=== PATIENT | female | born 1965 | race Caucasian/White ===

== ENCOUNTER 2020-05-31 02:50 | Emergency (ER) | payer OTHER ==
[~2020-05-31] VITALS: Ht 149.9 cm; Wt 40.4 kg
[~2020-05-31 02:50] MED LIST: ASCO1ER PO; Amoxicillin500 MG PO; CIPR500 PO; CODGUAEL PO; DIAZ5 PO; HYDACE5 PO; HYDGUAL120 PO; LEVFLO500 PO; NAPR500 PO; Naprosyn500 MG PO; OXYACE5T PO; TOBR.3OPSO OP
[2020-05-31] MEDS ORDERED: ALBU90OI (03:39)
[2020-05-31] MEDS ORDERED: ALBU2.5V5 (03:39)
[2020-05-31] MEDS ORDERED: Norco 5-325 Ta1 EACH PO (03:49)
[2020-05-31] MEDS ORDERED: IBUP600 PO (03:49)
== END 2020-05-31 04:00 | disposition home or self-care (01) ==
LOC: ER 02:50
DX: S23.29XA Dislocation of other parts of thorax, initial encounter (principal); Z79.899 Other long term (current) drug therapy; F17.200 Nicotine dependence, unspecified, uncomplicated; X50.1XXA Overexertion from prolonged static or awkward postures, initial encounter
CPT/HCPCS: 71101; 93005; 93010; 96374; 99284-25; J1885

== ENCOUNTER 2022-06-03 21:28 | Emergency (ER) | payer OTHER ==
[~2022-06-03] VITALS: Ht 149.9 cm; Wt 39.9 kg
[~2022-06-03 21:28] MED LIST changes: +ALBU2.5V5; +ALBU90OI; +IBUP600 PO; +Norco 5-325 Ta1 EACH PO
[2022-06-03 22:12] LABS: BASOPHILS ABSOLUTE AUTO 0.03 K/mm3 (0.00-0.23); BASOPHILS PERCENT AUTO 0 % (0-2); EOSINOPHILS ABSOLUTE AUTO 0.34 K/mm3 (0.00-0.68); EOSINOPHILS PERCENT AUTO 5 % (0-6); Hemoglobin 12.7 g/dL (11.5-16.0); IMMATURE GRAN ABSOLUTE AUTO 0.01 K/mm3 (0.00-0.10); IMMATURE GRAN PERCENT AUTO 0 % (0-1); LYMPHOCYTES ABSOLUTE AUTO 2.08 K/mm3 (0.84-5.20); LYMPHOCYTES PERCENT AUTO 30 % (21-46); MONOCYTES PERCENT AUTO 7 % (4-13); Mean Corpuscular HGB 30.8 pg (26.0-34.0); Mean Corpuscular HGB Conc 33.4 g/dL (31.5-36.5); Mean Corpuscular Volume 92 fL (80-100); Mean Platelet Volume 9.5 fL (9.1-12.4); NEUTROPHILS ABSOLUTE AUTO 4.03 K/mm3 (1.96-9.15); NEUTROPHILS PERCENT AUTO 58 % (41-73); Platelet Count 242 K/mm3 (150-400); RDW Coefficient Variation 12.2 % (11.7-14.2); RDW Standard Deviation 41.7 fL (35.1-46.3); Red Blood Cell Count 4.13 M/mm3 (3.80-5.20); White Blood Cell Count 6.99 K/mm3 (4.00-11.30)
[2022-06-03 22:29] LABS: Albumin, Blood 3.6 g/dL (3.4-5.0); Bilirubin, Total 0.4 mg/dL (0.1-1.0); Bun/Creatinine Ratio 20.2 (12.0-20.0); Calcium, Blood 9.5 mg/dL (8.5-10.1); Creatinine, Blood 0.74 mg/dL (0.40-1.00); Globulin, Blood 3.6 g/dL (2.2-4.0); Total Protein, Blood 7.2 g/dL (6.4-8.2)
[2022-06-04 00:13] LABS: Source, Urine Clean Catch
[2022-06-04 00:18] LABS: Bilirubin, Urine Neg (Neg); Blood, Urine 1+ (Neg); Glucose Qualitative, Urine Neg (Neg); Ketones, Urine Neg (Neg); Leukocyte Esterase, Urine 1+ (Neg); Nitrite, Urine Neg (Neg); Protein, Urine Neg (Neg); Urobilinogen, Urine NORM (Normal)
[2022-06-04 00:23] LABS: Appearance, Urine Hazy (Clear); Color, Urine Yellow (P-Yellow)
[2022-06-04 00:25] LABS: Bacteria Mod /hpf; Red Blood Cells, Urine 0-2 /hpf (0-2); Squamous Epithelial Cells Mod /hpf (Few)
[2022-06-04 00:26] LABS: Amorphous Heavy (0-Heavy)
[2022-06-04] MEDS ORDERED: ONDA4ODT MM (01:50)
[2022-06-04] MEDS ORDERED: AMOCLA875 PO (01:50)
== END 2022-06-04 02:05 | disposition home or self-care (01) ==
LOC: ER 21:28
PROVIDERS: Physician Assistant
DX: K52.9 Noninfective gastroenteritis and colitis, unspecified (principal); K41.90 Unilateral femoral hernia, without obstruction or gangrene, not specified as recurrent; J44.9 Chronic obstructive pulmonary disease, unspecified; F17.200 Nicotine dependence, unspecified, uncomplicated
CPT/HCPCS: 36415; 74176; 80053; 81001; 83690; 85025; A9270; J2270; J2405; J7030

== ENCOUNTER → 2024-09-20 | Outpatient (CLI) | payer OTHER ==
[~2024-09-20] MED LIST changes: +ALBU90OI INH; +AMOCLA875 PO; +ANORO ELLIPTA1 EACH INH; +Norvasc2.5 MG PO; +ONDA4ODT MM
[2024-09-20 14:19] LABS: BASOPHILS ABSOLUTE AUTO 0.04 K/mm3 (0.00-0.23); BASOPHILS PERCENT AUTO 1 % (0-2); EOSINOPHILS ABSOLUTE AUTO 0.36 K/mm3 (0.00-0.68); EOSINOPHILS PERCENT AUTO 7 % (0-6); Hematocrit 42.9 % (33.0-51.0); Hemoglobin 14.1 g/dL (11.5-16.0); IMMATURE GRAN ABSOLUTE AUTO 0.01 K/mm3 (0.00-0.10); IMMATURE GRAN PERCENT AUTO 0 % (0-1); LYMPHOCYTES ABSOLUTE AUTO 1.31 K/mm3 (0.84-5.20); LYMPHOCYTES PERCENT AUTO 27 % (21-46); MONOCYTES ABSOLUTE AUTO 0.36 K/mm3 (0.16-1.47); MONOCYTES PERCENT AUTO 7 % (4-13); Mean Corpuscular HGB 30.7 pg (26.0-34.0); Mean Corpuscular HGB Conc 32.9 g/dL (31.5-36.5); Mean Corpuscular Volume 93 fL (80-100); Mean Platelet Volume 9.6 fL (9.1-12.4); NEUTROPHILS ABSOLUTE AUTO 2.86 K/mm3 (1.96-9.15); NEUTROPHILS PERCENT AUTO 58 % (41-73); Platelet Count 252 K/mm3 (150-400); RDW Coefficient Variation 13.5 % (11.7-14.2); White Blood Cell Count 4.94 K/mm3 (4.00-11.30)
[2024-09-20 14:36] LABS: Albumin/Globulin Ratio 1.2 (0.8-1.8); Bilirubin, Total 0.2 mg/dL (0.1-1.0); Bun/Creatinine Ratio 16.7 (12.0-20.0); Calcium, Blood 9.2 mg/dL (8.5-10.1); Creatinine, Blood 0.96 mg/dL (0.40-1.00); Globulin, Blood 3.3 g/dL (2.2-4.0); Potassium, Blood 4.1 mmol/L (3.5-5.5); Total Protein, Blood 7.3 g/dL (6.4-8.2)
== END | disposition home or self-care (01) ==
LOC: LAB SHORT 14:15
PROVIDERS: Emergency Medicine
DX: R07.89 Other chest pain (principal)
CPT/HCPCS: 80053; 83690; 84484; 85025

== ENCOUNTER 2025-02-04 06:29 | Day surgery (SDC) | payer OTHER ==
[~2025-02-04] VITALS: Ht 143 cm; Wt 37.7 kg
[~2025-02-04 06:29] MED LIST changes: +BREZTRI AEROS10.7 GM IH; +Chantix1 MG PO; +Lactated Ringer's 1,000 ML IV SCH
[2025-02-04] MEDS ORDERED: propofoL 0 ML IV ONE (07:05)
[2025-02-04 07:18] VITALS: BP 171/114
--- NOTE | 2025-02-04 07:30 | NUR ---
PT HYPERTENSIVE IN DAY SURGERY. PT DENIES SYMPTOMS. BP RECHECKED WITH DIFFERENT CUFF ON BOTH SIDES. PT REMAINED HYPERTENSIVE. MD NOTIFIED. DR. TURNER CANCELLED PROCEDURE DUE TO UNCONTROLLED HTN.
[2025-02-04 07:32] VITALS: BP 143/108
== END 2025-02-04 23:00 | disposition home or self-care (01) ==
LOC: ORSCMMR 06:29 → ORD 07:30 → ORSCMMR 07:30
DX: Z12.11 Encounter for screening for malignant neoplasm of colon (principal); Z53.9 Procedure and treatment not carried out, unspecified reason
CPT/HCPCS: J2704; J7120